=== PATIENT | female | born 1955 | race Caucasian/White ===

== ENCOUNTER → 2016-07-09 | Outpatient (CLI) | payer BC ==
--- NOTE | 2016-07-09 17:20 | DIAGNOSTIC IMAGING REPORT ---
CHEST 2 VIEWS ROUTINE CLINICAL HISTORY: Cough. Left lower lateral rib pain. COMPARISON STUDY: Chest radiograph June 30, 2007. FINDINGS: There is no pneumothorax. There is a possible trace left pleural effusion. Linear right midlung opacity favors atelectasis. There is no evidence of pulmonary edema. Cardiomediastinal silhouette is normal. Ribs are better depicted on the rib series. Please see that report for further description. IMPRESSION: 1. No pneumothorax. 2. Possible trace left pleural effusion. 3. Linear right midlung opacity suggestive of atelectasis or scarring. Electronically signed by: Cortes Harris M.D. 07/09/2016 5:19 PM Dictated Date/Time: 07/09/2016 5:15 PM
--- NOTE | 2016-07-09 17:22 | DIAGNOSTIC IMAGING REPORT ---
LEFT RIBS UNILATERAL MIN 2 VIEWS CLINICAL HISTORY: Left lower lateral rib pain. Cough. COMPARISON STUDY: Chest radiograph June 30, 2007 FINDINGS: There is a possible acute nondisplaced fracture of the anterolateral left ninth rib. No additional left-sided rib fractures are identified. IMPRESSION: Possible acute nondisplaced fracture of the anterolateral left ninth rib. Electronically signed by: Cortes Harris M.D. 07/09/2016 5:21 PM Dictated Date/Time: 07/09/2016 5:19 PM
== END | disposition home or self-care (01) ==
LOC: C.RAD1850 16:44
PROVIDERS: ATTEND Family Medicine
DX: R05 Cough (principal); R07.89 Other chest pain

== ENCOUNTER → 2016-08-09 | Outpatient (CLI) | payer BC ==
--- NOTE | 2016-08-09 16:11 | DIAGNOSTIC IMAGING REPORT ---
CHEST 2 VIEWS ROUTINE CLINICAL HISTORY: ABNORMAL FINDING ON CHEST X-RAY dyspnea COMPARISON STUDY: I 03/08/2016 FINDINGS: Linear focus of increased density presumably relating to the right minor fissure has resolved. Lungs currently are considered clear. Diaphragms smooth. Calcific angles are sharp. IMPRESSION: No acute process. Lungs are clear. Electronically signed by: Morro Louis M.D. 08/09/2016 4:09 PM Dictated Date/Time: 08/09/2016 4:09 PM
== END | disposition home or self-care (01) ==
LOC: C.RAD1850 15:58
PROVIDERS: ATTEND Nurse Practitioner Family
DX: R93.8 Abnormal findings on diagnostic imaging of other specified body structures (principal); Z87.81 Personal history of (healed) traumatic fracture

== ENCOUNTER → 2016-10-07 | Outpatient (CLI) | payer BC | END | disposition home or self-care (01) | LOC: C.MAMM 10:12 | PROVIDERS: ATTEND Nurse Practitioner Family | DX: M85.851 Other specified disorders of bone density and structure, right thigh (principal); M85.852 Other specified disorders of bone density and structure, left thigh; Z87.81 Personal history of (healed) traumatic fracture; Z78.0 Asymptomatic menopausal state ==

== ENCOUNTER → 2017-02-17 | Outpatient (CLI) | payer OTHER ==
--- NOTE | 2017-02-17 12:47 | MAMMOGRAPHY REPORT ---
BILATERAL DIGITAL SCREENING MAMMOGRAM TOMOSYNTHESIS WITH CAD: 02/17/2017 CLINICAL HISTORY: Routine screening. TECHNIQUE: Breast tomosynthesis in addition to standard 2D mammography was performed. Current study was also evaluated with a Computer Aided Detection (CAD) system. COMPARISON: Comparison is made to exams dated: 02/12/2016 mammogram, 02/10/2015 mammogram, 4 mammogram, 02/02/2013 mammogram, 02/01/2012 mammogram, and 01/28/2011 mammogram - [facility]. BREAST COMPOSITION: There are scattered areas of fibroglandular density in both breasts. FINDINGS: No suspicious masses, calcifications, or areas of architectural distortion are noted in ei ther breast. There has been no significant interval change compared to prior exams. IMPRESSION: ACR BI-RADS CATEGORY 1: NEGATIVE There is no mammographic evidence of malignancy. A 1 year screening mammogram is recommended. The pa tient will receive written notification of the results. Approximately 10% of breast cancers are not detected with mammography. A negative mammographic report should not delay biopsy if a clinically suggestive mass is present. Erika Martin M.D. ah/:02/17/2017 12:31:39 Life Sciences Instructor: Nava DOWLING(Matthew)(M), [facility] letter sent: Normal 1/2 BI-RADS Code: ACR BI-RADS Category 1: Negative
== END | disposition home or self-care (01) ==
LOC: C.MAMM 10:15
PROVIDERS: ATTEND Family Medicine
DX: Z12.31 Encounter for screening mammogram for malignant neoplasm of breast (principal)